=== PATIENT | male | born 1975 | race Caucasian/White ===

== ENCOUNTER → 2022-04-28 09:45 | Outpatient (CLI) | payer BC, SELFPAY ==
--- NOTE | ~2022-04-28 | MR_ITS ---
EXAMINATION: MR lumbar spine wo con DATE: 04/28/2022 10:26 INDICATION: Chronic low back pain. Left leg pain. TECHNIQUE: Magnetic resonance imaging (MRI) of the lumbar spine was performed without intravenous con trast. Sequences included sagittal T2-weighted FSE, sagittal T2-weighted FS FSE, sagittal T1-weighted FSE, and axial T2-weighted FSE. COMPARISON: Lumbar spine radiographs 09/16/2015 FINDINGS: There is 3 degrees levocurvature of lumbar spine. There are Schmorl's nodes at multiple lev els. There is moderately decreased disc height at L5-S1 with endplate remodeling. Epidural lipomatosi s is noted. The distal spinal cord signal intensity is normal. The conus medullaris is at L1. The fol lowing disc levels are specifically discussed: L1-L2: The disc does not extend beyond the endplate margin. There is mild bilateral facet joint osteo arthritis. There is no neural foraminal stenosis. There is no central canal stenosis. L2-L3: The disc is bulging. There is mild bilateral facet joint osteoarthritis. There is no neural fo raminal stenosis. There is mild central canal stenosis. L3-L4: There is a left foraminal extrusion. There is mild bilateral facet joint osteoarthritis. There is mild left neural foraminal stenosis. There is no central canal stenosis. L4-L5: The disc is bulging and has a superimposed left foraminal extrusion. There is mild bilateral f acet joint osteoarthritis. There is mild right and moderate left neural foraminal stenosis. There is no central canal stenosis. L5-S1: The disc is bulging and has an annular fissure. There is mild bilateral facet joint osteoarthr itis. There is mild right and moderate left neural foraminal stenosis. There is mild central canal st enosis. IMPRESSION: 1. Moderate lumbar spondylosis. Reviewed, dictated and finalized at location A.
== END ==
PROVIDERS: PCP Nurse Practitioner Family; Visit Provider Nurse Practitioner Family
DX: M47.26 Other spondylosis with radiculopathy, lumbar region (principal)
CPT/HCPCS: 72148

== ENCOUNTER 2022-09-20 09:21 | Outpatient (CLI) | payer BC, SELFPAY ==
--- NOTE | 2022-09-20 11:00 | NEURO_ITS ---
Impression: # Complains of pain and nocturnal paresthesia in hands. # Bilateral Carpal Tunnel Syndrome, right more than left. # No ulnar neuropathy. # Normal needle/EMG exam. Motor Nerve Conduction Upper Extremities Median Nerve Conduction Velocity (m/sec) Terminal Latency (msec) Response Voltage(mV) Elbow-Wrist Wrist Elbow Wrist Right 62 5.4 3 3 Left 60 4.3 3 4 Ulnar Nerve Conduction Velocity (m/sec) Terminal Latency (msec) Response Voltage(mV) Above Elbow Below Elbow Wrist Above Elbow Below Elbow Wrist Right 60 2.6 6 6 Left 59 2.3 7 7 F-Wave Latency Median (ms) Ulnar (ms) Right 30.5 28.1 Left 29.5 28.5 Sensory Nerve Conduction Upper Extremities Median Nerve Stimulation Terminal Latency (msec) Wrist/Digit Response Voltage (uV) Wrist Right 4.7/4.6 7/20 Left 4.2/4.1 23/22 Ulnar Nerve Stimulation Terminal Latency (msec) Wrist/Digit Response Voltage (uV) Wrist Right 2.3 27 Left 2.3 29 Radial Nerve Terminal Latency (msec) Response Voltage(mV) Right 2.0 17 Left 2.0 25 Left Right Muscles Examined Fibrillation Fasciculation Scarcity Voltage Duration Left Right Left Right Left Right Left Right Left Right X X Deltoid X X Biceps X X Brachioradialis X X Triceps X X Pronator Teres X X Ext Indicis X X Ext Digitorum X X Abd Poll Brev X X 1st Dorsal Interosseus X X Abd Dig Min MTDD
== END 2022-09-20 09:22 | disposition home or self-care (01) ==
PROVIDERS: PCP Nurse Practitioner Family; Visit Provider Nurse Practitioner Family
DX: R20.2 Paresthesia of skin (principal); G56.03 Carpal tunnel syndrome, bilateral upper limbs
CPT/HCPCS: 95886; 95911

== ENCOUNTER → 2022-11-05 08:23 | Outpatient (CLI) | payer BC, SELFPAY ==
--- NOTE | ~2022-11-05 | XR_ITS ---
XR shoulder LT min 2V DATE: 11/05/2022 09:00 INDICATION: Left shoulder pain TECHNIQUE: 4 views COMPARISON: None FINDINGS: No fracture or dislocation, periosteal reaction or bone destruction. No abnormal soft tissu e calcification. IMPRESSION: No significant abnormality Reviewed, dictated and finalized at location B. D LEAD IMPRESSION: No significant abnormality
--- NOTE | ~2022-11-05 | XR_ITS ---
XR shoulder RT min 2V DATE: 11/05/2022 09:00 INDICATION: Right shoulder pain TECHNIQUE: 4 views COMPARISON: None FINDINGS: No fracture or dislocation, periosteal reaction or bone destruction or abnormal soft tissue calcification. IMPRESSION: Negative Reviewed, dictated and finalized at location B. UET ATTENDANT IMPRESSION: Negative
== END ==
PROVIDERS: PCP Internal Medicine; Visit Provider Nurse Practitioner Family
DX: M25.511 Pain in right shoulder (principal); M25.512 Pain in left shoulder
CPT/HCPCS: 73030

== ENCOUNTER 2023-03-11 07:56 | Outpatient (CLI) | payer BC, SELFPAY ==
--- NOTE | ~2023-03-11 | MR_ITS ---
EXAMINATION: MR shoulder RT wo con DATE: 03/11/2023 08:30 INDICATION: Right shoulder pain. TECHNIQUE: Magnetic resonance imaging (MRI) of the right shoulder was performed without intravenous c ontrast. Sequences included axial PD-weighted FS FSE, coronal oblique PD-weighted FS FSE and T2-weigh keaton FS FSE, and sagittal oblique T2-weighted FS FSE and T1-weighted FSE. COMPARISON: Right shoulder radiographs 11/05/2022 FINDINGS: Coracoacromial arch: The acromion undersurface is curved in morphology with anterior hook (type III). There is moderate ac romioclavicular joint osteoarthritis. There is mild subacromial/subdeltoid bursitis. Rotator cuff: There is a bursal sided partial-thickness tear of supraspinatus tendon measuring 10 mm anterior to po sterior by 4 mm proximal to distal by 50% tendon thickness. Infraspinatus and teres minor tendons are normal. There is a distal interstitial tear of subscapularis tendon. Biceps tendon and glenoid labrum: There is a complete tear of proximal biceps tendon with scarred tendon in the bicipital groove. There is a tear of superior glenoid labrum from 2:00 to 10:00 (SLAP tear). Fluid: There is a small glenohumeral joint effusion. Bones/cartilage: Glenoid cartilage is normal. Humeral head cartilage is normal. IMPRESSION: 1. Partial-thickness rotator cuff tears. 2. Complete tear of proximal biceps tendon. 3. SLAP tear. 4. Moderate acromioclavicular joint osteoarthritis. 5. Small glenohumeral joint effusion. 6. Mild subacromial/subdeltoid bursitis. Reviewed, dictated and finalized at location A.
== END 2023-03-11 07:57 ==
LOC: MICIMG 07:57
PROVIDERS: PCP Anesthesiology Pain Medicine; Visit Provider Anesthesiology Pain Medicine
DX: M75.101 Unspecified rotator cuff tear or rupture of right shoulder, not specified as traumatic (principal); S46.211A Strain of muscle, fascia and tendon of other parts of biceps, right arm, initial encounter; X58.XXXA Exposure to other specified factors, initial encounter; M75.51 Bursitis of right shoulder; M25.411 Effusion, right shoulder; M19.011 Primary osteoarthritis, right shoulder
CPT/HCPCS: 73221

== ENCOUNTER → 2023-08-23 13:52 | Outpatient (CLI) | payer BC, SELFPAY ==
--- NOTE | ~2023-08-23 | MR_ITS ---
EXAMINATION: MR shoulder LT wo con DATE: 08/23/2023 14:48 INDICATION: Chronic left shoulder pain TECHNIQUE: Magnetic resonance imaging (MRI) of the left shoulder was performed without intravenous co ntrast. Sequences included axial PD-weighted FS FSE, coronal oblique PD-weighted FS FSE, coronal obli que T2-weighted FS FSE, sagittal PD-weighted FS FSE, and sagittal T1-weighted SE. COMPARISON: None. FINDINGS: Coracoacromial arch: The acromion undersurface is curved in morphology (type II). The coracoacromial ligament is normal. M ild acromioclavicular osteoarthritis. Rotator cuff: Mild supraspinatus and anterior infraspinatus tendinopathy. There is a near full-thickness tear along the superior facet footplate of the supraspinatus tendon which measures 1.5 cm AP. Small region barbara uring 3 mm AP in the anterior margin of the tear which appears to involve the bursal side of the tend on. Tear closely approaches but does not appear to definitively involve the articular side of the ten don. Teres minor tendon is normal. Mild tendinopathy without tear of the cephalad subscapularis tendo n. Normal rotator cuff muscle bulk and signal. Biceps tendon, glenoid labrum and glenohumeral cartilage: Long head of the biceps tendon is normal. Glenoid labrum is normal. Glenohumeral cartilage is normal. Fluid: Physiologic amount of fluid in the glenohumeral joint and biceps tendon sheath. No loose osteochondr al bodies. Mild increased fluid signal in the subacromial/subdeltoid bursa consistent with minimal bu rsitis. Bones: Normal marrow signal with no edema, fracture or abnormal marrow replacing process. Mild cystlike good ges along the cephalad lesser tuberosity footplate of the subscapularis tendon and at the lateral mar gin of the intertubercular groove at the insertion of the intact transverse humeral ligament. IMPRESSION: 1. Mild supraspinatus and anterior infraspinatus tendinopathy with small partial-thickness tear along the superior facet footplate of the supraspinatus tendon with smaller near full-thickness bursal damon ed component to the tear. 2. Mild to moderate acromioclavicular osteoarthritis with minimal underlying subacromial/subdeltoid b ursitis. Reviewed, dictated and finalized at location A. IMPRESSION: 1. Mild supraspinatus and anterior infraspinatus tendinopathy with small partia l-thickness tear along the superior facet footplate of the supraspinatus tendon with smaller near full-thickness bursal sided component to the tear. 2. Mild to moderate acromioclavicular osteoarthritis with minimal underlying irby bacromial/subdeltoid bursitis.
== END ==
DX: M75.102 Unspecified rotator cuff tear or rupture of left shoulder, not specified as traumatic (principal); M19.012 Primary osteoarthritis, left shoulder
CPT/HCPCS: 73221

== ENCOUNTER 2023-10-11 02:25 | Day surgery (SDC) | payer BC, SELFPAY ==
[2023-09-24 15:00] VITALS: BMI 38.1
--- NOTE | 2023-10-09 09:06 | SUR.PREOP ---
Patient called regarding upcoming procedure. Reviewed preop instructions, new appointment times, and procedure prep.
--- NOTE | 2023-10-10 10:05 | P.PNAN_ITS ---
Anes - Initial Pre Proc Eval Procedure: Operation Date: 10/11/23 14:00 Proposed Procedures p Colonoscopy - Jose Phillips MD Date/Time: 10/10/23 10:05 Surgeon: Jose Phillips MD Pre Op Diagnosis: hx colon polyps Patient Data Age: 48 Gender: M Height: 1.8 m Weight: 124 kg Allergies Allergy/AdvReac Type Severity Reaction Status Date / Time No Known Allergies Allergy Verified 10/11/23 12:34 Home Medications Medication Instructions Recorded Confirmed Type atorvastatin 40 mg tablet 40 mg PO DAILY 09/24/23 10/11/23 History lisinopril 20 mg tablet 20 mg PO DAILY 09/24/23 10/11/23 History testosterone enanthate 75 mg/0.5 75 mg subcut WEEKLY 09/24/23 10/11/23 History mL subcutaneous auto-injector (Xyosted) Patient hx anesthesia problems: none Family hx anesthesia problems: none Results Review: All pre-operative results and documents have been reviewed as part of the pre- operative evaluation. [facility] Past Medical History Medical History (Updated 10/11/23 @ 12:43 by Jose Phillips MD) Colon polyp Hyperlipidemia Hypertension Social History Social History Smoking status: Never smoker Alcohol intake: current Drinks per week: 4 Substance use type: does not use Living arrangements: with family Spiritual care concerns: No Anes - Eval Final PreProcedure Day of Procedure 10/10/23 10:05 Patient weight: obese Heart: regular rate and rhythm Lungs: clear to auscultation Airway: Mallampati scale class II Neurological: alert and oriented Last oral intake: >/= 8 hours ASA classification: III Emergent: no Anesthetic plan: proceed Anesthesia type and monitoring: general GIVS and standard monitoring Results Review: All pre-operative results and documents have been reviewed as part of the pre- operative evaluation. Informed Consent: The patient's anesthetic plan and its attendant risks and benefits were discussed with the patient/family/POA. Questions were solicited and answers provided to the satisfaction of the patient/family/POA.
--- NOTE | 2023-10-11 12:42 | PM.HPGS ---
History of Present Illness History of Present Illness Consent: Risks, benefits, and alternatives have been discussed and questions answered. Patient agrees to proceed with procedure. Chief complaint: hx colon polyps Narrative: Abhijeet Oliver is a 48 year old male with colon polyp 5 years ago Review of Systems Constitutional: Constitutional: Denies headache(s) and Denies weakness Eyes: Eyes: Denies blurry vision ENT: Reports Normal hearing present, Denies headache(s) and Denies neck pain Cardiovascular: Cardiovascular: Denies chest pain and Denies dyspnea Respiratory: Respiratory: Denies dyspnea Gastrointestinal: Gastrointestinal: Reports no additional gastrointestinal complaints Genitourinary: Genitourinary: Denies dysuria Musculoskeletal: Musculoskeletal: Denies neck pain Integumentary/Breasts: Skin/Breast: Denies dry skin Neurologic: Reports Normal hearing present, Denies headache(s) and Denies weakness Psychiatric: Psychiatric: Denies anxiety Endocrine: Endocrine: Denies change in body appearance Hematologic/Lymphatic: Hematologic/Lymphatic: Denies easy bleeding Allergic/Immunologic: Allergic/Immunologic: Denies urticaria PMF Past Medical History Medical History (Updated 10/11/23 @ 12:43 by Jose Phillips MD) Colon polyp Hyperlipidemia Hypertension Social History Social History Smoking status: Never smoker Alcohol intake: current Drinks per week: 4 Substance use type: does not use Living arrangements: with family Spiritual care concerns: No Meds Home Medications and Allergies Home Medications Medication Instructions Recorded Confirmed Type atorvastatin 40 mg tablet 40 mg PO DAILY 09/24/23 10/11/23 History lisinopril 20 mg tablet 20 mg PO DAILY 09/24/23 10/11/23 History testosterone enanthate 75 mg/0.5 75 mg subcut WEEKLY 09/24/23 10/11/23 History mL subcutaneous auto-injector (Xyosted) Allergies Allergy/AdvReac Type Severity Reaction Status Date / Time No Known Allergies Allergy Verified 10/11/23 12:34 Exam Const: General: comfortable and no acute distress HENMT: Face/Nose/Sinus: Normal nares present Eyes: General: appearance normal, both eyes and all related structures Neck: Neck: no JVD Resp: Auscultation: clear to auscultation bilaterally Cardio: Rate: regular rate Rhythm: regular rhythm GI: Inspection: non-distended GI Palp: Yes Soft to palpation Skin: General skin exam: normal color Neuro: General: gait normal Speech: normal speech Extrem: General: normal to inspection Psych: Mental Status: mental status grossly normal Assessment and Plan Assessment and plan (1) Colon polyp: Code(s): K63.5 - Polyp of colon Status: Acute Assessment and Plan: colonoscopy
[2023-10-11 12:43] VITALS: BP 149/76; PULSE 87; RESP 18; TEMP 36.3; O2SAT 98; BMI 38.7
[2023-10-11] MEDS: LACTATED RINGERS 1,000 ML 150 ML IV CONT (12:46)
[2023-10-11 13:00] VITALS: BP 102/69; PULSE 81; RESP 24; O2SAT 95
[2023-10-11 13:10] VITALS: BP 108/75; PULSE 86; RESP 26; O2SAT 97
[2023-10-11 13:20] VITALS: BP 125/82; PULSE 80; RESP 20; O2SAT 97
== END 2023-10-11 13:30 | disposition home or self-care (01) ==
PROVIDERS: PCP Internal Medicine; Visit Provider Internal Medicine Gastroenterology
PROC: 0DJD8ZZ Inspection of Lower Intestinal Tract, Via Natural or Artificial Opening Endoscopic (ICD-10-PCS; CPT 45378; principal; 2023-10-11 14:00)
DX: Z12.11 Encounter for screening for malignant neoplasm of colon (principal); D12.3 Benign neoplasm of transverse colon; K63.5 Polyp of colon; K64.8 Other hemorrhoids; I10 Essential (primary) hypertension; E78.5 Hyperlipidemia, unspecified; Z79.890 Hormone replacement therapy; E66.9 Obesity, unspecified; Z68.38 Body mass index [BMI] 38.0-38.9, adult
CPT/HCPCS: 45380; 88305; J7120

== ENCOUNTER 2025-09-13 12:09 | Outpatient (CLI) | payer BC, SELFPAY ==
[2025-09-13 12:32] LABS: Hematocrit 55.9 % (42.0-52.0); Hemoglobin 18.7 g/dL (14.0-18.0); Mean Corpuscular HGB Conc 33.5 g/dl (32-36); Mean Corpuscular Hemoglobin 28.2 pg (26-34); Mean Corpuscular Volume 84.2 fl (80-100); Platelet Count Result 304 k/mm3 (150-375); Red Blood Count 6.64 M/mm3 (4.6-6.20); White Blood Count 10.8 K/mm3 (4.5-10.0)
[2025-09-13 12:56] LABS: Iron 94 ug/dL (49-181)
[2025-09-13 13:06] LABS: Percent Iron Saturation 20 % (20-50)
[2025-09-13 13:37] LABS: Ferritin 10.20 ng/mL (17.9-464)
--- OUTSIDE RECORDS SUMMARY | 2025-09-13 14:04 | XMS_ITS | Clinical Summary ---
Author Organization [facility] Address [address] [place] [address] Phone Care Team Providers Care Track Patrol Name Role Phone Mello Roblero MD Primary Care Provider [phone] Ernestina Hsu MD Unavailable Allergies No known active allergies Medications atorvastatin (LIPITOR) 40 MG Tablet atorvastatin 40 mg tablet 1 Active Ascorbic Acid (Vitamin C) 1000 MG Tablet Take 1 Tablet by mouth daily. Active Misc Natural Products (JOINT HEALTH PO) Take 1 Tablet by mouth daily. Active acetaminophen (TYLENOL) 500 MG Tablet Take 1,000 mg by mouth. 3 Active ibuprofen (MOTRIN) 800 MG Tablet Take 800 mg by mouth every 8 hours as needed. 3 Active traZODone (DESYREL) 100 MG Tablet nightly as needed. 3 Active Zepbound 5 MG/0.5ML Solution Auto-injector 7.5 mg by Intramuscular route once a week. 4 Active Xyosted 75 MG/0.5ML Solution Auto-injector 50 mg by Intramuscular route once a week. 4 Active lisinopril (PRINIVIL, ZESTRIL) 20 MG Tablet Take 20 mg by mouth daily. 4 Active Active Problems Problem Noted Date Diagnosed Date Lateral epicondylitis 12/04/2022 10/03/2023 Benign essential hypertension 07/03/2019 Pure hypercholesterolemia 07/03/20192022 Lumbar radiculopathy 10/18/2015 10/03/2023 Family History Medical History Relation Name Comments Diabetes Father Hypertension Father Relation Name Status Comments Father Social History Tobacco Use Types Packs/Day Years Used Date Smoking Tobacco: Never Smokeless Tobacco: Never Tobacco Cessation:Counseling Given: No Alcohol Use Standard Drinks/Week Comments Yes 0 (1 standard drink = 0.6 oz pur e alcohol) 10 per month Sex and Gender Information Value Date Recorded Sex Assigned at Not on file Legal Sex Male 4:04 PM CDT Gender Identity Not on file Sexual Orientation Not on file Last Filed Vital Signs Vital Sign Reading Time Taken Comments Blood Pressure 126/74 06/11/2024 8:11 AM CDT Pulse 75 06/11/2024 8:11 AM CDT Temperature 36.9 C (98.4 F) 06/11/2024 8:11 AM CDT Respiratory Rate 18 06/11/2024 8:11 AM CDT Oxygen Saturation 96% 06/11/2024 8:11 AM CDT Inhaled Oxygen Concentration - - Weight 114.9 kg (253 lb 4.8 oz) 06/11/2024 8:11 AM CDT Height 180.3 cm (5' 11) 06/11/2024 8:11 AM CDT Body Mass Index 35.33 06/11/2024 8:11 AM CDT Plan of Treatment Health Maintenance Due Date Last Done Comments Hepatitis C Virus (HCV) Screening 1976 TdaP Immunization 1976 Hepatitis B Immunization (1 of 3 - 19+ 3-dose series) 1995 Cologuard 2021 Colonoscopy 2021 Colorectal Cancer Screening 2021 Immunochemical Fecal Occult Blood 2021 Influenza Immunization (#1) 2025 SARS-COV-2 Immunization ( season) 2025 06/19/2021, 05/27/2021 Respiratory Syncytial Virus (RSV) Immunization (Adult) (1 - 1-dose 75+ series) 2051 Human Papillomavirus (HPV) Immunization Aged Out No longer eligible b ased on patient's age to complete this topic Meningococcal Immunization (ACWY) Aged Out No longer eligible b ased on patient's age to complete this topic Pneumococcal Immunization Combined Aged Out No longer eligible b ased on patient's age to complete this topic Rotavirus Immunization Aged Out No lo nger eligible based on patient's age to complete this topic [place] [address] [place] [address] Care Teams Track Patrol Relationship Specialty Start Date End Date Mello Roblero MD [address] [facility] [address] [place] [id number] PCP - General Internal Medicine 03/22/23 Ernestina Hsu MD [address] [place] [address] Consulting Physician Oncology 03/12/24
--- OUTSIDE RECORDS SUMMARY | 2025-09-13 14:04 | XMS_ITS | Clinical Summary ---
Author Organization [facility] Address [address] [place] [address] Care Team Providers Care Child Nutrition Manager Name Role Phone Mello Roblero MD Primary Care Provider [phone] Source Comments [facility],non-owned Affiliates and Associated Physician Practices is amultiple site organization consisting of ambulatory clinics and hospital sitesin [place], [place], [place] and [place]. This disclosure is being madepursuant to the Care Everywhere program and may not contain all information available regarding this patient. Last updated 18.[facility] Allergies No known active allergies Medications * Be aware that medications may not be up to date on this document. Alwaysverify current medications with the patient. atorvastatin (Lipitor) 40 MG tablet Take 1 (one) tablet by mouth once daily Active lisinopril (Prinivil; Zestril) 10 MG tablet Take 1 (one) tablet by mouth once daily Active Ascorbic Acid (ZACH-C PO) Take 1,000 mg by mouth once daily Active Acetaminophen (TYLENOL PO) Active anastrozole (Arimidex) 1 MG tablet Take 0.5 (one-half) tablet by mouth every 2 days Active Jatenzo 237 MG CAPS 1 cap by mouth every day in the morning and in the evening; must administer with a meal/food Active Encounters Date Type Department Care Team Description 08/19/2025 7:36 AM CDT - 08/19/2025 11:59 PM CDT Hospital Encounter [facility] - MRI [address] [place] [address] Julisa Frankel PA-C Discharge Disposition: Home or Self Care 08/06/2025 Travel 07/30/2025 11:40 AM CDT Office Visit [facility] [address] [place] [address], [address] [place] [id number] Julisa Frankel PA-C Bilateral rotator cuff dysfunction (Primary Dx); Chronic right shoulder pain; Status post arthroscopy of right shoulder; Chronic left shoulder pain; Tear of left rotator cuff, unspecified tear extent, unspecified whether traumatic from Last 3 Months Social History Tobacco Use Types Packs/Day Years Used Date Smoking Tobacco: Former Cigarettes Smokeless Tobacco: Never Tobacco Cessation:Counseling Given: Not Answered Alcohol Use Standard Drinks/Week Comments Yes 2 (1 standard drink = 0.6 oz pur e alcohol) socially PHQ-2 Answer Date Recorded Patient Health Questionnaire-2 Score 0 07/29/2025 Sex and Gender Information Value Date Recorded Sex Assigned at Not on file Legal Sex Male 9:32 AM CDT Gender Identity Not on file Sexual Orientation Not on file Last Filed Vital Signs Vital Sign Reading Time Taken Comments Blood Pressure 122/79 05/30/2023 12:31 PM CDT Pulse 84 05/30/2023 12:31 PM CDT Temperature 36.3 C (97.3 F) 05/30/2023 11:06 AM CDT Respiratory Rate 27 05/30/2023 12:31 PM CDT Oxygen Saturation 93% 05/30/2023 12:38 PM CDT Inhaled Oxygen Concentration - - Weight 117.9 kg (260 lb) 01/26/2025 9:14 AM CDT Height 180.3 cm (5' 11) 01/26/2025 9:14 AM CDT Body Mass Index 36.26 01/26/2025 9:14 AM CDT Plan of Treatment Health Maintenance Due Date Last Done Comments COLOGUARD (AGES 45-75) - COL ON CA SCREENING 1976 COLON MONITORING 1976 COLONOSCOPY - COLON CA SCREENING 1976 CT COLONOGRAPHY - COLON CA SCREENING 1976 Colorectal Cancer Screening 1976 FIT - COLON CA SCREENING 1976 FLEX SIG - COLON CA SCREENING 1976 HIV SCREENING 1991 HEPATITIS C SCREENING 05/01/1994 DTAP/TDAP/TD VACCINES (1 - Tdap) 1995 HEPATITIS B VACCINE (1 of 3 - 19+ 3-dose series) 1995 COVID-19 VACCINE (3 - Pfizer risk series) 07/17/2021 06/19/2021, 05/27/2021 SCREENING FOR DIABETES 01/26/2025 INFLUENZA VACCINE (#1) 2025 ZOSTER VACCINE (1 of 2) 2026 DEPRESSION SCREENING Completed 01/26/2025 HIB VACCINE Aged Out No longer eligi ble based on patient's age to complete this topic HPV VACCINE Aged Out No longer eligi ble based on patient's age to complete this topic MENINGOCOCCAL (Group B) VACCINE SHARED DECISION-MAKING Aged Out No longer eligible based on patient's age to complete this topic MENINGOCOCCAL GROUPS A/C/Y/W VACCINE Aged Out No longer eligible b ased on patient's age to complete this topic Medical Devices Implanted Type Area Hr Receptionist Device Identifier Shelf Expiration Date Model / Serial / Lot Yisel Reyna 4.75mm Bc Implanted:Qty: 3 on 05/30/2023 by Kalyn Toney MD at [facility] Right: Shoulder [employer] 02/17/2027 [id number] C / / [id number] Sut Fib[address]ak Dr Reyna Slf Pnch 1.7mm Tig Implanted:Qty: 1 on 05/30/2023 by Kalyn Toney MD at [facility] Right: Shoulder [employer] 02/18/2028 [id number] / / [id number] [place] Slf Pnch Fibertak Kl Dr Ladonna Carranza Implanted:Qty: 1 on 05/30/2023 by Kalyn Toney MD at [facility] Right: Shoulder [employer] 01/19/2028 [id number] / / [id number] Procedures Procedure Name Priority Date/Time Associated Diagnosis Comments MRI SHOULDER RIGHT WO CONTRAST Routine 08/19/2025 8:14 AM CDT Bilateral rotator cuff dysfunction Chronic right shoulder pain Status post arthroscopy of right shoulder from Last 3 Months Results * MRI Shoulder Right Wo Contrast (08/19/2025 8:14 AM CDT) Anatomical Region Laterality Modality Upper Extremity Magnetic Resonan ce 08/19/2025 9:31 AM CDT Impressions 08/19/2025 8:13 PM CDT IMPRESSION: 1.Postoperative changes within the shoulder including supraspinatus and subscapularis rotator cuff repair and subacromial decompression/acromioplasty. 2.No rotator cuff tendinosis or tear. 3.Mild acromioclavicular arthritis 4.Chronic proximal biceps tendon tear. > Dictated by Royce Dinh MD, MD (radiology services manager). > Dictated by Environmental Services Manager I, Mani Trejo MD have personally reviewed and interpreted this examination/study. > Interpreting Provider: Mani Trejo MD on 08/19/2025 8:13 PM Narrative 08/19/2025 8:13 PM CDT PROCEDURE: MRI SHOULDER RIGHT WO CONTRAST, DATE/TIME OF EXAM: 08/19/2025 8:14 AM, LOCATION [facility] INDICATION: M67.911: Bilateral rotator cuff dysfunction M67.912: Bilateral rotator cuff dysfunction M25.511: Chronic right shoulder pain G89.29: Chronic right shoulder pain Z98.890: Status post arthroscopy of right shoulder COMPARISON: Right shoulder MRI dated 03/11/2023 from [facility] and bilateral shoulder radiographs dated 08/07/2024 TECHNIQUE: MRI of the right shoulder was performed using multiple pulse sequences in multiple planes without contrast. FINDINGS: The acromioclavicular joint is intact. There is mild acromioclavicular joint osteoarthritis. Glenohumeral alignment is normal. There is no effusion. The glenoid labrum is normal, within the limits of this non-arthrographic examination. The glenohumeral articular cartilage is intact. Thickening of the distal supraspinatus and subscapularis tendons with associated humeral head anchors compatible with postoperative changes of rotator cuff repair. No evidence of tendinosis or tear is seen. Infraspinatus and teres minor tendons appear normal without evidence of tendinosis or tear. The biceps tendon is not clearly seen within the bicipital groove although it is visualized more inferiorly along the humerus. The tendon may simply be very thin. There is no fluid in the subacromial-subdeltoid bursa. Bone marrow signal is normal. Postoperative changes of subacromial decompression/debridement. Muscle bulk is normal. The subcutaneous tissue is normal. Procedure Note Mani Trejo MD - 08/19/2025 PROCEDURE: MRI SHOULDER RIGHT WO CONTRAST, DATE/TIME OF EXAM:08/19/2025 8:14 AM, LOCATION [facility] INDICATION: M67.911: Bilateral rotator cuff dysfunction M67.912: Bilateral rotator cuff dysfunction M25.511: Chronic right shoulder pain G89.29: Chronic right shoulder pain Z98.890: Status post arthroscopy of right shoulder COMPARISON: Right shoulder MRI dated 03/11/2023 from [facility] and bilateral shoulder radiographs dated 08/07/2024 TECHNIQUE: MRI of the right shoulder was performed using multiple pulse sequences in multiple planes without contrast. FINDINGS: The acromioclavicular joint is intact. There is mild acromioclavicular joint osteoarthritis. Glenohumeral alignment is normal. There is no effusion. The glenoidlabrum is normal, within the limits of this non-arthrographic examination. The glenohumeral articular cartilage is intact. Thickening of the distal supraspinatus and subscapularis tendons with associated humeral head anchors compatible with postoperative changes of rotator cuff repair. No evidence of tendinosis or tear is seen. Infraspinatus and teres minor tendons appear normal without evidence of tendinosis or tear. The biceps tendon is not clearly seen within the bicipital groovealthough it is visualized more inferiorly along the humerus. The tendon maysimply be very thin. There is no fluid in the subacromial-subdeltoid bursa. Bone marrow signal is normal. Postoperative changes of subacromial decompression/debridement. Muscle bulk is normal. The subcutaneoustissue is normal. IMPRESSION: 1.Postoperative changes within the shoulder including supraspinatus and subscapularis rotator cuff repair and subacromial decompression/acromioplasty. 2.No rotator cuff tendinosis or tear. 3.Mild acromioclavicular arthritis 4.Chronic proximal biceps tendon tear. > Dictated by Royce Dinh MD, MD (radiology services manager). > Dictated by Environmental Services Manager I, Mani Trejo MD have personally reviewed and interpreted this examination/study. > Interpreting Provider: Mani Trejo MD on 08/19/2025 8:13 PM Julisa Frankel PA-C MR ORDERABLES Final Result from Last 3 Months Insurance ANTHE[facility] SELF PAY NO INSURANCE Member Subscriber Plan / Payer (Ef fective for All Dates) Name:Enmanuel Oliver Member ID:Not on file Relation to Subscriber:Not on file Name:ENMANUEL OLIVER Subscriber ID:Not on file Address: [address] [place] [address] Payer ID:Not on file Group ID:Not on file Type:Self Pay Address: [place], [place] BCBS/BLUE [employer] [facility] Address: [facility] [id number] [place] [address] SELF PAY NO INSURANCE Member Subscriber Plan / Payer (Ef fective for All Dates) Name:Enmanuel Oliver Member ID:Not on file Relation to Subscriber:Not on file Name:ENMANUEL OLIVER Subscriber ID:Not on file Address: [address] [place] [address] Payer ID:Not on file Group ID:Not on file Type:Self Pay Address: [place], [place] * Guarantor: ENMANUEL OLIVER Account Type Relation to Patient Date of Phone Billing Address Personal/Family Spouse Care Teams Child Nutrition Manager Relationship Specialty Start Date End Date Mello Roblero MD [address] [place] [phone] PCP - General 02/07/18
--- OUTSIDE RECORDS SUMMARY | 2025-09-13 14:04 | XMS_ITS | Clinical Summary ---
Author Organization [facility] Address [address] [place] [address] Care Team Providers Care Instructional Technology Specialist Name Role Phone Mello Roblero MD Primary Care Provider Social History Tobacco Use Types Packs/Day Years Used Date Smoking Tobacco: Never Assessed Sex and Gender Information Value Date Recorded Sex Assigned at Not on file Legal Sex Male 1:01 PM CDT Gender Identity Not on file Sexual Orientation Not on file Plan of Treatment Health Maintenance Due Date Last Done Comments Colorectal Cancer Screening Colonoscopy (10 Years) 1976 Annual Physical 1979 Hepatitis C 1994 DTaP, Tdap and Td Vaccines ( 1 - Tdap) 1995 Hepatitis B Vaccines (1 of 3 - 19+ 3-dose series) 1995 COVID-19 Vaccine ( - 2024-2 6 season) 2025 06/19/2021, 05/27/2021 Influenza Adult (#1) 2025 Hepatitis A Vaccines Aged Out No long er eligible based on patient's age to complete this topic Meningococcal B Vaccine Aged Out No l onger eligible based on patient's age to complete this topic Meningococcal Vaccine Aged Out No sherlyn jonathan eligible based on patient's age to complete this topic Pneumococcal Vaccine: Pediatrics (0 to 5 Years) and At-Risk Patients (6 to 49 Years) Aged Out No longer eligible b ased on patient's age to complete this topic RSV Immunizations Under 20 Months Aged Out No longer eligible b ased on patient's age to complete this topic Insurance [facility] Care Teams Instructional Technology Specialist Relationship Specialty Start Date End Date Mello Roblero MD [address] [address] PCP - General INTERNAL MEDICINE 05/27/24
--- OUTSIDE RECORDS SUMMARY | 2025-09-13 14:04 | XMS_ITS | Clinical Summary ---
Author Organization [facility] Address [address] [place] [phone] Care Team Providers Care Electronic News Gathering Editor Name Role Phone Mello Roblero MD Primary Care Provider Allergies No known active allergies Medications lisinopril (PRINIVIL,ZESTR IL) 20 mg tablet Take 1 tablet (20 mg total) by mouth daily Active atorvastatin (LIPITOR) 40 mg tablet Take 0.5 tablets (20 mg total) by mouth daily 08/12/2021 Active tadalafiL (CIALIS) 5 mg tablet daily Active Xyosted 75 mg/0.5 mL auto-injector 10/29/2022 Activ e Active Problems Problem Noted Date Diagnosed Date Lateral epicondylitis 12/04/2022 Low back strain 03/02/2022 Acute sinusitis 11/27/2021 Testicular hypofunction 09/09/2020 Benign essential hypertension 07/03/2019 Palpitations 07/03/2019 Pure hypercholesterolemia 07/03/2019 Lumbar radiculopathy 10/18/2015 Surgical History Surgery Date Site/Laterality Comments KNEE SURGERY KNEE ARTHROSCOPY Medical History Medical History Date Comments Hypercholesteremia Hypertension Family History Medical History Relation Name Comments Diabetes Father Family history of diabetes mellitus - (Added by TW Conv) Cancer Mother Family history of malignant neoplasm - (Added by TW Conv) Hypertension Other Stroke Other Relation Name Status Comments Father Mother Other Social History Tobacco Use Types Packs/Day Years Used Date Smoking Tobacco: Former Smokeless Tobacco: Never Alcohol Use Standard Drinks/Week Comments Yes 0 (1 standard drink = 0.6 oz pur e alcohol) AUDIT-C Answer Date Recorded Q1: How often do you have a drink containing alc ohol? Monthly or less 08/14/2024 Q2: How many drinks containi ng alcohol do you have on a typical day when you are drinking? 1 or 2 08/14/2024 Q3: How often do you have si x or more drinks on one occasion? Monthly 08/14/2024 Sex and Gender Information Value Date Recorded Sex Assigned at Not on file Legal Sex Male 1:23 PM [employer] DR[employer] Gender Identity Not on file Sexual Orientation Not on file Last Filed Vital Signs Vital Sign Reading Time Taken Comments Blood Pressure 125/80 08/14/2024 1:17 PM CDT Pulse 72 08/14/2024 1:17 PM CDT Temperature - - Respiratory Rate 18 08/14/2024 1:17 PM CDT Oxygen Saturation - - Inhaled Oxygen Concentration - - Weight 117.9 kg (260 lb) 08/14/2024 1:17 PM CDT Height 174 cm (5' 8.5) 08/14/2024 1:17 PM CDT Body Mass Index 38.96 08/14/2024 1:17 PM CDT Plan of Treatment Health Maintenance Due Date Last Done Comments Colon Cancer Screening-Colonoscopy 1976 Depression Screening 1976 Hepatitis C Screening 1976 DTaP/Tdap/Td Vaccine (1 - Tdap) 1987 Hepatitis B Screening 1994 Regular Well Visit/Exam 18-64 1994 Covid-19 Vaccine (3 - 2024-2 6 season) 2025 06/19/2021, 05/27/2021 Influenza Vaccine (#1) 2025 Pneumococcal vaccine <65 Aged Out No longer eligible based on patient's age to complete [place] [address] -[employer] [place] OOS [employer] ACCESS OOS [employer] ACCESS OOS Care Teams Electronic News Gathering Editor Relationship Specialty Start Date End Date Mello Roblero MD [address] [facility] [address] [place] [address] PCP - General Internal Medicine 05/14/19
--- OUTSIDE RECORDS SUMMARY | 2025-09-13 14:04 | XMS_ITS | Encounter Summary ---
Author Organization [facility] Address [address] [place] [address] Phone Care Team Providers Care Pvc Monitor Name Role Phone Mello Roblero MD Primary Care Provider [phone] Ernestina Hsu MD Unavailable Reason for Visit * Reason Comments Medication Refill Encounter Details Date Type Department Care Team (Late st Contact Info) Description 09/28/2024 Refill [facility] [address] [place] [address] Leobardo Boudreaux, HOME DELIVERY DRIVER, FLUE DUST LABORER [address] [place] [address] Medication Refill Social History Tobacco Use Types Packs/Day Years Used Date Smoking Tobacco: Never Smokeless Tobacco: Never Alcohol Use Standard Drinks/Week Comments Yes 0 (1 standard drink = 0.6 oz pur e alcohol) 10 per month Sex and Gender Information Value Date Recorded Sex Assigned at Not on file Legal Sex Male 4:04 PM CDT Gender Identity Not on file Sexual Orientation Not on file documented as of this encounter Plan of Treatment Not on file documented as of this encounter Visit Diagnoses Not on filedocumented in this encounter Care Teams Pvc Monitor Relationship Specialty Start Date End Date Mello Roblero MD [address] [facility] [address] [place] [address] PCP - General Internal Medicine 03/22/23 Ernestina Hsu MD NPI: [id number] [place] [id number] Consulting Physician Oncology 03/12/24 documented as of this encounter
== END 2025-09-13 12:10 | disposition home or self-care (01) ==
LOC: ANHLAB 12:11
PROVIDERS: PCP Internal Medicine; Visit Provider Nurse Practitioner
DX: D75.1 Secondary polycythemia (principal)
CPT/HCPCS: 36415; 82728; 83540; 83550; 85027; 99212; G0463